=== PATIENT | female | born 2000 | race Caucasian/White ===

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

== ENCOUNTER 2020-01-06 20:48 | Emergency (ER) | payer MEDICAID ==
[~2020-01-06] VITALS: Ht 157.5 cm; Wt 89.0 kg
[2020-01-06] MEDS ORDERED: KETOROLAC 60MG/2ML VIAL IM ONE (22:30)
[2020-01-06 22:40] VITALS: BP 135/85
== END 2020-01-06 22:56 | disposition home or self-care (01) ==
LOC: ER 20:48
DX: H66.91 Otitis media, unspecified, right ear (principal); H60.91 Unspecified otitis externa, right ear
CPT/HCPCS: 96372; 99283; J1885

== ENCOUNTER 2020-04-14 22:19 | Emergency (ER) | payer MEDICAID ==
[~2020-04-14] VITALS: Ht 157.5 cm; Wt 93.0 kg
[2020-04-14] MEDS ORDERED: IBUPROFEN 600MG TABLET PO ONE (23:15)
[2020-04-14] MEDS ORDERED: TETANUS, DIPHTHERIA, PERTUSSIS VAC/PF 0.5ML (>7YR OLD) IM ONE (23:15)
[2020-04-14] MEDS ORDERED: BACITRACIN ZINC OINT UDPKT TOP ONE (23:15)
[2020-04-14] MEDS ORDERED: LIDOCAINE HCL/PF 1% 10 MG/ML 5ML VIAL IJ ONE (23:15)
[2020-04-14 23:28] VITALS: BP 110/80
== END 2020-04-14 23:35 | disposition home or self-care (01) ==
LOC: ER 22:19
DX: S61.314A Laceration without foreign body of right ring finger with damage to nail, initial encounter (principal); Z90.49 Acquired absence of other specified parts of digestive tract; X58.XXXA Exposure to other specified factors, initial encounter; Y93.89 Activity, other specified; Y92.89 Other specified places as the place of occurrence of the external cause; Y99.8 Other external cause status
CPT/HCPCS: 11730; 90471; 90715; 99283; J3490; 12001

== ENCOUNTER 2021-07-23 17:40 | Emergency (ER) | payer MEDICAID ==
[~2021-07-23] VITALS: Ht 165.1 cm; Wt 68.0 kg
[2021-07-23] MEDS ORDERED: MORPHINE SULFATE 4 MG/ML CPJ (NOT FOR IM USE) IV ONE (18:30)
[2021-07-23] MEDS ORDERED: IBUP-2029 MT (19:49)
[2021-07-23] MEDS ORDERED: HYDR-4001 MT (19:49)
[2021-07-23 21:15] VITALS: BP 128/72
== END 2021-07-23 21:17 | disposition home or self-care (01) ==
LOC: ER 17:40
DX: S82.52XA Displaced fracture of medial malleolus of left tibia, initial encounter for closed fracture (principal); M25.562 Pain in left knee; W10.8XXA Fall (on) (from) other stairs and steps, initial encounter; Y93.89 Activity, other specified; Y92.89 Other specified places as the place of occurrence of the external cause
CPT/HCPCS: 29515; 73560; 73590; 73600; 96374; 99284; J2270; Z7610

== ENCOUNTER 2022-08-02 10:10 | Emergency (ER) | payer MEDICAID ==
[~2022-08-02] VITALS: Ht 167.6 cm; Wt 78.0 kg
[~2022-08-02 10:10] MED LIST: HYDR-4001 MT; IBUP-2029 MT
[2022-08-02 10:13] VITALS: BP 124/79
[2022-08-02] MEDS ORDERED: SULF1TAB48 MT (13:38)
[2022-08-02] MEDS ORDERED: CEPH500C2 MT (13:38)
[2022-08-02] MEDS ORDERED: IBUP-2028 MT (13:38)
[2022-08-02 14:04] LABS: CLARITY URINE CLOUDY (CLEAR); COLOR URINE DARK YELLOW (YELLOW); KETONES URINE TRACE (NEGATIVE); LEUKOCYTE ESTERASE URINE 1+ (NEGATIVE); NITRITE URINE POSITIVE (NEGATIVE); OCCULT BLOOD URINE NEGATIVE (NEGATIVE); PH URINE 5.5 (4.5-8.0); PROTEIN URINE 1+ (NEGATIVE); UROBILINOGEN URINE 0.2 E.U./dL (0.2-1.0)
== END 2022-08-02 14:06 | disposition home or self-care (01) ==
LOC: ER 10:10
DX: L02.413 Cutaneous abscess of right upper limb (principal); N39.0 Urinary tract infection, site not specified; Z90.49 Acquired absence of other specified parts of digestive tract
CPT/HCPCS: 81003; 81025; 99283

== ENCOUNTER 2022-08-04 10:14 | Emergency (ER) | payer MEDICAID ==
[~2022-08-04] VITALS: Ht 160 cm; Wt 87.0 kg
[~2022-08-04 10:14] MED LIST changes: +CEPH500C2 MT; +IBUP-2028 MT; +SULF1TAB48 MT
[2022-08-04 10:41] VITALS: BP 112/64
[2022-08-04] MEDS ORDERED: TRIA15CR61 TP (12:19)
[2022-08-04] MEDS ORDERED: BACITRACIN ZINC OINT UDPKT TOP ONE (13:00)
[2022-08-04] MEDS ORDERED: LIDOCAINE HCL/PF 1% 10 MG/ML 5ML VIAL INFIL ONE (13:00)
[2022-08-04] MEDS ORDERED: IBUP-2029 MT (13:55)
== END 2022-08-04 14:10 | disposition home or self-care (01) ==
LOC: ER 10:30
DX: L02.411 Cutaneous abscess of right axilla (principal); Z79.899 Other long term (current) drug therapy
CPT/HCPCS: 81025; 99282; J3490

== ENCOUNTER 2024-04-14 09:27 | Emergency (ER) | payer MEDICAID ==
[~2024-04-14] VITALS: Ht 165.1 cm; Wt 90.0 kg
[~2024-04-14 09:27] MED LIST changes: +TRIA15CR61 TP
[2024-04-14 09:34] VITALS: O2SAT 100
[2024-04-14 10:06] LABS: HEMATOCRIT. 37.4 % (36.0-48.0); HEMOGLOBIN. 12.7 g/dL (12.0-16.0); MEAN CORPUSCULAR HEMOGLOBIN 30.9 pg (28.0-32.0); MEAN CORPUSCULAR HGB CONC 34.1 g/dL (31.0-37.0); MEAN CORPUSCULAR VOLUME 90.6 fL (81.0-99.0); MEAN PLATELET VOLUME 8.2 fl (7.4-10.4); PLATELET 299 x1000/uL (130-400); RED BLOOD CELL COUNT 4.13 mill/uL (4.2-5.4); RED CELL DISTRIBUTION WIDTH 14.5 % (11.6-14.6)
[2024-04-14 10:08] LABS: CLARITY URINE CLOUDY (CLEAR); COLOR URINE ORANGE (YELLOW); GLUCOSE URINE NEGATIVE (NEGATIVE); KETONES URINE NEGATIVE (NEGATIVE); LEUKOCYTE ESTERASE URINE 3+ (NEGATIVE); NITRITE URINE POSITIVE (NEGATIVE); OCCULT BLOOD URINE NEGATIVE (NEGATIVE); PROTEIN URINE 1+ (NEGATIVE); SPECIFIC GRAVITY URINE 1.017 (1.005-1.030)
[2024-04-14 10:11] LABS: DIFFERENTIAL COMMENT 1
[2024-04-14 10:13] LABS: CHLORIDE 104 mEq/L (98-107); POTASSIUM 3.6 mEq/L (3.5-5.1); SODIUM 137 mEq/L (136-145)
[2024-04-14 10:14] LABS: CARBON DIOXIDE 24 mEq/L (21-32)
[2024-04-14 10:15] LABS: CALCIUM 9.7 mg/dL (8.7-10.4)
[2024-04-14 10:19] LABS: CREATININE 0.9 mg/dL (0.6-1.0); GLUCOSE 118 mg/dL (70-105)
[2024-04-14 10:20] LABS: UREA NITROGEN BLOOD 6 mg/dL (9-23)
[2024-04-14] MEDS ORDERED: ONDANSETRON 4MG ODT PO ONE (10:30)
[2024-04-14] MEDS ORDERED: CEPHALEXIN 250MG CAPSULE PO ONE (10:30)
[2024-04-14] MEDS ORDERED: KETOROLAC 30MG/ML VIAL IM ONE (10:30)
[2024-04-14 10:41] LABS: MUCUS URINE 1+ /lpf (< = 2+); SQUAMOUS EPITHELIAL CELL URINE 3+ /lpf (RARE/1+)
[2024-04-14 10:42] LABS: WBC URINE 25-50 /hpf (0-2)
[2024-04-14 10:43] LABS: BACTERIA URINE 4+; RBC URINE 0-2 /hpf (0-2)
[2024-04-14 10:51] LABS: ALANINE AMINOTRANSFERASE 42 IU/L (10-49); ASPARTATE AMINOTRANSFERASE 23 IU/L (<34)
[2024-04-14 10:52] LABS: ALBUMIN 4.7 g/dL (3.2-4.8); BILIRUBIN DIRECT 0.3 mg/dL (<=3.0); BILIRUBIN TOTAL 1.1 mg/dL (0.1-1.0)
[2024-04-14 11:27] LABS: PLATELET ESTIMATE NORMAL
[2024-04-14] MEDS: KETOROLAC 30MG/ML VIAL IM NR (12:15)
[2024-04-14] MEDS: ONDANSETRON 4MG ODT PO NR (12:15)
[2024-04-14] MEDS: CEPHALEXIN 250MG CAPSULE PO NR (12:16)
[2024-04-14] MEDS ORDERED: CEPH500C2 MT (13:17)
[2024-04-14] MEDS ORDERED: ACET-2708 MT (13:17)
[2024-04-14 13:39] VITALS: BP 148/87; PULSE 91; RESP 20; TEMP 98
== END 2024-04-14 13:38 | disposition home or self-care (01) ==
LOC: ER 09:27
DX: N39.0 Urinary tract infection, site not specified (principal); Z90.49 Acquired absence of other specified parts of digestive tract
CPT/HCPCS: 99285; 74176; 80076; 80048; 81003; 81025; 83690; 85025; 87086; 36415; 96372; Q0162; J1885

== ENCOUNTER 2024-10-15 16:00 | Emergency (ER) | payer MEDICAID ==
[~2024-10-15] VITALS: Ht 157.5 cm; Wt 110.0 kg
[~2024-10-15 16:00] MED LIST changes: +ACET-2708 MT
[2024-10-15 16:10] VITALS: O2SAT 99
[2024-10-15 17:50] LABS: CLARITY URINE CLEAR (CLEAR); COLOR URINE YELLOW (YELLOW); GLUCOSE URINE NEGATIVE (NEGATIVE); KETONES URINE NEGATIVE (NEGATIVE); LEUKOCYTE ESTERASE URINE TRACE (NEGATIVE); NITRITE URINE NEGATIVE (NEGATIVE); OCCULT BLOOD URINE NEGATIVE (NEGATIVE); PH URINE 5.5 (4.5-8.0); PROTEIN URINE NEGATIVE (NEGATIVE); SPECIFIC GRAVITY URINE 1.007 (1.005-1.030); UROBILINOGEN URINE 0.2 E.U./dL (0.2-1.0)
[2024-10-15 17:55] LABS: RBC URINE NONE SEEN /hpf (0-2); WBC URINE 0-2 /hpf (0-2)
[2024-10-15 17:56] LABS: BACTERIA URINE TRACE; SQUAMOUS EPITHELIAL CELL URINE FEW /lpf (RARE/1+)
[2024-10-15 19:53] LABS: BASOPHILS % 0.3 % (0.0-2.0); EOSINOPHILS % 2.5 % (0.0-5.0); HEMATOCRIT. 36.8 % (36.0-48.0); HEMOGLOBIN. 12.6 g/dL (12.0-16.0); LYMPHOCYTES % 35.4 % (20.0-50.0); MEAN CORPUSCULAR HEMOGLOBIN 32.3 pg (28.0-32.0); MEAN CORPUSCULAR HGB CONC 34.2 g/dL (31.0-37.0); MEAN CORPUSCULAR VOLUME 94.5 fL (81.0-99.0); MEAN PLATELET VOLUME 7.6 fl (7.4-10.4); MONOCYTES % 5.4 % (2.0-8.0); NEUTROPHILS % 56.4 % (40.0-76.0); PLATELET 292 x1000/uL (130-400); RED BLOOD CELL COUNT 3.89 mill/uL (4.2-5.4); RED CELL DISTRIBUTION WIDTH 16.5 % (11.6-14.6); WHITE BLOOD COUNT 6.2 x1000/uL (4.5-11.0)
[2024-10-15 19:59] LABS: CHLORIDE 107 mEq/L (98-107); SODIUM 141 mEq/L (136-145)
[2024-10-15 20:00] LABS: CARBON DIOXIDE 25 mEq/L (21-32)
[2024-10-15 20:01] LABS: CALCIUM 10.1 mg/dL (8.7-10.4)
[2024-10-15 20:05] LABS: CREATININE 0.8 mg/dL (0.6-1.0)
[2024-10-15 20:06] LABS: GLUCOSE 95 mg/dL (70-105); HCG SCREEN NEGATIVE; UREA NITROGEN BLOOD 11 mg/dL (9-23)
[2024-10-15 20:07] LABS: ALANINE AMINOTRANSFERASE 53 IU/L (10-49); ASPARTATE AMINOTRANSFERASE 30 IU/L (<34)
[2024-10-15 20:08] LABS: BILIRUBIN DIRECT 0.2 mg/dL (<=3.0); BILIRUBIN TOTAL 0.8 mg/dL (0.1-1.0); PROTEIN TOTAL 7.9 g/dL (6.0-8.3)
[2024-10-15] MEDS ORDERED: ONDA-239 PO (20:56)
[2024-10-15 22:21] VITALS: BP 121/73; PULSE 86; RESP 16; TEMP 36.89184; O2SAT 99
== END 2024-10-15 22:25 | disposition home or self-care (01) ==
LOC: ER 16:00
DX: A08.4 Viral intestinal infection, unspecified (principal); Z87.440 Personal history of urinary (tract) infections; Z90.49 Acquired absence of other specified parts of digestive tract; Z79.899 Other long term (current) drug therapy
CPT/HCPCS: 36415; 80048; 80076; 81003; 81025; 84703; 85025; 99283

== ENCOUNTER 2025-01-12 11:25 | Emergency (ER) | payer MEDICAID ==
[~2025-01-12] VITALS: Ht 157.5 cm; Wt 100.0 kg
[~2025-01-12 11:25] MED LIST changes: +ONDA-239 PO
[2025-01-12 11:31] VITALS: O2SAT 98
[2025-01-12 11:38] VITALS: BP 123/53; PULSE 80; RESP 16; TEMP 36.7; O2SAT 96
== END 2025-01-12 13:23 | disposition home or self-care (01) ==
LOC: ER 11:25
DX: R21 Rash and other nonspecific skin eruption (principal); Z32.00 Encounter for pregnancy test, result unknown; Z90.49 Acquired absence of other specified parts of digestive tract; Z79.899 Other long term (current) drug therapy
CPT/HCPCS: 81025; 99282